=== PATIENT | female | born 1980 | race African-American/Black ===

== ENCOUNTER 2017-12-05 14:26 | Emergency (ER) | payer SELFPAY | END 2017-12-05 16:57 | disposition home or self-care (01) | LOC: ERS 14:26 | DX: Z32.01 Encounter for pregnancy test, result positive (principal); E11.9 Type 2 diabetes mellitus without complications; E78.5 Hyperlipidemia, unspecified; I10 Essential (primary) hypertension; E66.9 Obesity, unspecified; F17.210 Nicotine dependence, cigarettes, uncomplicated | CPT/HCPCS: 36415; 84702; 99282 ==

== ENCOUNTER 2018-06-16 18:02 | Day surgery (SDC) | payer MEDICAID, OTHER ==
[2018-06-16 19:35] VITALS: BMI 37.0
[2018-06-16 19:36] VITALS: BP 135/69; TEMP 98.1
--- NOTE | 2018-06-16 19:39 | PDOC.FPROB ---
FMR OB H&P: HPI - History of Present Illness Chief Complaint: 04/17 BPP/NST in clinic today History of Present Illness: Pt is a 37 yo @ 33.3 wk by LMP/9.1 wk sono presenting for repeat BPP/ NST for non reassuring NST/BPP today in clinic. NST showed only 1 accel, and BPP lost point for no breathing. Pt denies LOF, contractions, or vaginal bleeding. Baby is moving well. Pt has been complicated by A2GDM, cHTN, sickle cell trait, AMA, uterine fibroids, obesity, anemia of , and positive UDS for cannabis. She is being followed by M. Pt reports having high fasting morning blood sugars around 190, but other checks through the day have been in the 90s. Switched from glyburide 2.5 to 5 last week in clinic. Pt states that she had headache all day yesterday that resolved with tylenol. She also has been having upper abdominal pain. Pt complains of constipation. Denies swelling of hands/ feet. Primary Care Physician: Dr. Almaraz FMR OB H&P: Current - Care : G5 Para: [id number] Gestational age: 33.3 wk Dating Criteria: 9.1 wk sono Course/Complications: Pt has been complicated by A2GDM, cHTN, sickle cell trait, AMA, uterine fibroids, obesity, anemia of , and positive UDS for cannabis. 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 17 pack year history. Denies alcohol or drug use. UDS in clinic + for cannabinoids. - Family History Family History: DM: mGM Cardiac: heart attacks on both sides of family Cancer: brother stomach cancer, pGF prostate cancer, pGM breast cancer FMR OB H&P: Medications - Current Home Medications: Medication Instructions Recorded Confirmed Type Aspirin [Aspir-Low] 81 mg PO DAILY 06/16/18 06/16/18 History Doxylamine Succinate/Vit B6 2 tablet PO HS 06/16/18 06/16/18 History [Catie RIVERA] Ferrous Sulfate [Feosol] 325 mg PO BID 06/16/18 06/16/18 History Metoclopramide HCl 5 mg PO BID 06/16/18 06/16/18 History Pnv 102/Iron/Folic/Dha/Lutein 1 each PO DAILY 06/16/18 06/16/18 History [Similac Combo Pack] Ranitidine HCl [Acid Rn Critical Care] 150 mg PO DAILY 06/16/18 06/16/18 History glyBURIDE [Glyburide] 2.5 mg PO DAILY 06/16/18 06/16/18 History Allergies/Adverse Reactions: Allergies Allergy/AdvReac Type Severity Reaction Status Date / Time No Known Allergies Allergy Verified 06/16/18 19:40 FMR OB H&P: ROS - Review of Systems General: denies: fever/chills Eyes: denies: eye pain, vision changes ENT: denies: nasal congestion, rhinorrhea, ear pain, sore throat Cardiovascular: denies: chest pain, palpitation Respiratory: denies: cough, congestion, shortness of breath Gastrointestinal: reports: abdominal pain (upper abdominal pain), constipation. denies: nausea, vomiting, diarrhea, bright red blood FMR OB H&P: Vital Signs - Maternal Vital signs: BP 135/69, P 88, T 98.8 - Heart Tones Baseline: 120 Variability: moderate Acceleration: present Deceleration: absent Phillips contractions every: none FMR OB H&P: Physical Exam - Physical Exam General: NAD, awake, alert and oriented HEENT: normocephalic and atraumatic, PERRLA, MMM, grossly normal hearing Neck: supple, no LAD Heart: RRR, normal S1/S2, no murmurs/rubs/gallops, pulses present, no edema General: CTAB, no respiratory distress, good air movement, no rales/rhonchi, no wheezing Abdomen: soft, gravid, other (TTP in upper abdomen) Musculoskeletal: pulses present Neurological: cranial nerves II through XII intact Skin: good tugor, capillary refill <2 seconds Psychiatric: intact recent and remote memory, good judgement and insight, normal mood and affect FMR OB H&P: A/P - Problem List (1) GDM, class A2 Status: Acute Code(s): O24.419 - GESTATIONAL DIABETES MELLITUS IN , UNSP CONTROL (2) Chronic benign essential hypertension in third trimester Status: Acute Code(s): O10.013 - PRE-EXISTING ESSENTIAL HTN COMP , THIRD TRIMESTER (3) Sickle cell trait syndrome Status: Chronic Code(s): D57.3 - SICKLE-CELL TRAIT (4) Advanced maternal age (AMA) in Status: Acute Code(s): [id number] - (5) Uterine fibroid Status: Chronic Code(s): D25.9 - LEIOMYOMA OF UTERUS, UNSPECIFIED (6) Obesity (BMI 30-39.9) Status: Chronic Code(s): E66.9 - OBESITY, UNSPECIFIED (7) Anemia affecting in third trimester Status: Acute Code(s): O99.013 - ANEMIA COMPLICATING , THIRD TRIMESTER (8) Cannabis abuse Status: Chronic Code(s): F12.10 - CANNABIS ABUSE, UNCOMPLICATED Discussion: Date/Time: 06/16/18 1934 Pt is a 37 yo high risk @ 33.3 wk by LMP/9.1 wk sono with reassuring NST /BPP. #sIUP -FHTs reactive and reassuring, baseline 120 with mod variability, accels present and no decels -BPP 8/8 at this time -PHOEBE 7.1 -Breech presentation -Follow up with routine care with PCP Dr. Deidra Almaraz #A2GDM -continue glyburide 5 mg and checking blood sugars at home -Consistent carb diet #cHTN -Stable at this time, BP have been in the 130s/70s. -Recent clinic labs showed normal liver enzymes, and BP stable so no concern for Pre-E at this time #sickle cell trait -Continue following with MFM -Continue Monthly UAs #AMA #uterine fibroids #obesity #anemia of -Continue Fe daily #Positive UDS for cannabis during [facility] [place] PGY-1 This H&P was discussed with Dr. Booker who agree with the above documentation and plan. Attending Addendum - Attending Addendum Date/Time: 06/16/18 4736 I personally evaluated the patient and discussed the management with Dr. Swain I agree with the History, Examination, Assessment and Plan documented above with any addition or exceptions noted below. BPP 08/17 on repeat. March d/c to home.
--- NOTE | 2018-06-16 20:46 | ULT ---
LIMITED OBSTETRICAL ULTRASOUND FOR BIOPHYSICAL PROFILE: 06/16/18 INDICATION: Unreassuring BPP examination. FINDINGS: The fetus received 2 out of 2 for movement, 2 out of 2 for tone, 2 out of 2 for br eathing movement and 2 out of 2 for amniotic fluid pocket measurement. PHOEBE was 7.1 cm, which at the provided gestational age of 33 weeks is slightly below 2.5th percentile. Placenta is posterior in location. There is breech presentation. Cardiac activity is noted at 136 beats per minute. IMPRESSION: 1. Biophysical profile 8 out of 8. 2. PHOEBE of 7.1 is below the 2.5th percentile for gestational age. POS: [facility]
== END 2018-06-16 20:58 | disposition home or self-care (01) ==
LOC: L&D/OP 18:02
PROVIDERS: ATTEND Family Medicine
DX: O24.415 Gestational diabetes mellitus in pregnancy, controlled by oral hypoglycemic drugs (principal); O10.013 Pre-existing essential hypertension complicating pregnancy, third trimester; O99.013 Anemia complicating pregnancy, third trimester; D57.3 Sickle-cell trait; O99.323 Drug use complicating pregnancy, third trimester; F12.10 Cannabis abuse, uncomplicated; O34.13 Maternal care for benign tumor of corpus uteri, third trimester; D25.9 Leiomyoma of uterus, unspecified; O32.1XX0 Maternal care for breech presentation, not applicable or unspecified; O09.523 Supervision of elderly multigravida, third trimester; O99.213 Obesity complicating pregnancy, third trimester; E66.9 Obesity, unspecified; Z68.37 Body mass index [BMI] 37.0-37.9, adult; Z3A.33 33 weeks gestation of pregnancy; Z87.891 Personal history of nicotine dependence; Z79.84 Long term (current) use of oral hypoglycemic drugs; Z79.82 Long term (current) use of aspirin; Z79.899 Other long term (current) drug therapy
CPT/HCPCS: 59025; 76819; 99282

== ENCOUNTER 2018-07-01 13:32 | Day surgery (SDC) | payer OTHER ==
[2018-07-01 13:59] VITALS: BMI 37.0
--- NOTE | 2018-07-01 14:37 | ULT ---
ULTRASOUND BIOPHYSICAL PROFILE: Date: 07/01/18 HISTORY: distress. FINDINGS: A single, live intrauterine gestation is seen, with heart rate of 143 beats/minute. PHOEBE measure s 8.0 cm. Placenta is posteriorly located. position Is vertex. Biophysical Profile: Tone: 2 Breathin Movements: 2 Amniotic Fluid: 2 IMPRESSION: Ultrasound biophysical profile score is 8 out of 8. POS: [facility]
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
== END 2018-07-01 15:15 | disposition home health service (06) ==
LOC: L&D/OP 13:32
PROVIDERS: ATTEND Family Medicine
DX: O09.523 Supervision of elderly multigravida, third trimester (principal); O24.419 Gestational diabetes mellitus in pregnancy, unspecified control; O10.013 Pre-existing essential hypertension complicating pregnancy, third trimester; O99.213 Obesity complicating pregnancy, third trimester; O99.013 Anemia complicating pregnancy, third trimester; Z3A.35 35 weeks gestation of pregnancy; Z87.891 Personal history of nicotine dependence; Z79.82 Long term (current) use of aspirin; Z79.899 Other long term (current) drug therapy
CPT/HCPCS: 36416; 59025; 76819; 99282

== ENCOUNTER 2018-07-07 14:11 | Day surgery (SDC) | payer OTHER ==
--- NOTE | 2018-07-07 15:44 | ULT ---
ULTRASOUND BIOPHYSICAL PROFILE: 07/07/18 HISTORY: Failed nonstress test in office. COMPARISON: Biophysical profile 07/01/18. FINDINGS: Real time cordova scale and color evaluation of the gravid uterus was performed. Biophysical profile sco re is 8/8. heart rate documented at 127 beats per minute. Amniotic fluid index is 6.8. IMPRESSION: 1. Biophysical profile score of 8/8. 2. Amniotic fluid index of 6.8. POS: [facility]
--- NOTE | 2018-07-07 15:53 | PDOC.FPROB ---
Addendum entered and electronically signed by Eleni Galdamez MD 07/07/18 16:22 : Please addend the plan: BP on exam today was 138/88; cervical exam @ 1615 was cl /th/hi Original Note: FMR OB H&P: HPI - History of Present Illness Chief Complaint: non-reactive NST History of Present Illness: This is a 38 yo @ 36.2wks by LMP and 9.1wk US presenting for nonreactive NST in clinic. Patient feels baby movement. She notes a vaginal discharge but states she was recently checked in clinic, amnisure neg. She denies LOF or bleeding from the vagina. She denies CTX, headache, vision changes , SOB, chest pain or fever. is complicated by GDM A2, cHTN, sickle cell trait, AMA, uterine fibroids, obesity, anemia of and history of UDS+ cannibinoids. Regarding GDM, patient states she checks her blood sugar 3 x a day and it has been controlled with glyburide. She recently saw a specialist who adjusted her medications to 5mg in the AM and 2.5mg in PM. She notes compliance. Primary Care Physician: Dr. 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: uterine fibroids - Social History Social History: 17 pack year smoking hx, quit when she found out she was FMR OB H&P: Medications - Current Home Medications: Medication Instructions Recorded Confirmed Type Aspirin [Aspir-Low] 81 mg PO DAILY 06/16/18 07/07/18 History Ferrous Sulfate [Feosol] 325 mg PO BID 06/16/18 07/07/18 History glyBURIDE [Glyburide] 2.5 mg PO DAILY 06/16/18 07/07/18 History Allergies/Adverse Reactions: Allergies Allergy/AdvReac Type Severity Reaction Status Date / Time No Known Allergies Allergy Verified 07/07/18 17:18 FMR OB H&P: ROS - Review of Systems General: denies: fever/chills, weight/appetite/sleep changes, night sweats Eyes: denies: eye pain, vision changes, double vision, scotomas, floaters ENT: denies: nasal congestion, rhinorrhea Cardiovascular: denies: chest pain, palpitation, edema Respiratory: denies: cough, congestion, shortness of breath Gastrointestinal: denies: abdominal pain, indigestion, bloating, cramping, nausea, vomiting, diarrhea, constipation Genitourinary (Female): reports: vaginal discharge. denies: incontinence, dysuria, hematuria, polyuria, vaginal pain, vaginal bleeding, contractions, vaginal pressure Musculoskeletal: denies: pain, stiffness, tenderness, redness Neurologic: denies: numbness, syncope, seizures, headache Integumentary: denies: itching, rash FMR OB H&P: Physical Exam - Physical Exam General: NAD, awake, alert and oriented HEENT: normocephalic and atraumatic, PERRLA, EOMI, MMM, grossly normal vision, grossly normal hearing Neck: supple, FROM Chest: non-tender to palpation Heart: RRR, normal S1/S2, no murmurs/rubs/gallops General: CTAB, no respiratory distress, good air movement Abdomen: gravid, non-tender, bowel sound present Musculoskeletal: FROM in all four extremities Skin: no rash Psychiatric: normal mood and affect FMR OB H&P: Results - Labs Lab results: Laboratory Results - last 24 hr 07/07/18 15:38 POC Glucose 44 L* FMR OB H&P: A/P - Problem List (1) Advanced maternal age (AMA) in Status: Acute Code(s): [id number] - (2) Anemia affecting in third trimester Status: Acute Code(s): O99.013 - ANEMIA COMPLICATING , THIRD TRIMESTER (3) Chronic benign essential hypertension in third trimester Status: Acute Code(s): O10.013 - PRE-EXISTING ESSENTIAL HTN COMP , THIRD TRIMESTER (4) GDM, class A2 Status: Acute Code(s): O24.419 - GESTATIONAL DIABETES MELLITUS IN , UNSP CONTROL (5) Intrauterine Status: Acute Code(s): Z34.90 - ENCNTR FOR SUPRVSN OF NORMAL , UNSP, UNSP TRIMESTER (6) Cannabis abuse Status: Chronic Code(s): F12.10 - CANNABIS ABUSE, UNCOMPLICATED (7) Obesity (BMI 30-39.9) Status: Chronic Code(s): E66.9 - OBESITY, UNSPECIFIED (8) Sickle cell trait syndrome Status: Chronic Code(s): D57.3 - SICKLE-CELL TRAIT (9) Uterine fibroid Status: Chronic Code(s): D25.9 - LEIOMYOMA OF UTERUS, UNSPECIFIED Disposition: This is a 38 yo who is presenting due to non-reactive NST in clinic IUP, nonreactive NST - will observe in L&D - BPP US was 8 in the hospital today, PHOEBE 6.8 - Pt is feeling baby move - pt's glucose was 44 - after diet we will recheck - We will do a cervical check on the patient today GDM, Class A2 - We will continue meds - Pt's admit glucose was 44; she is going to drink orange juice and have a diet and then we will recheck glucose Chronic HTN - current BP wnl - will continue to monitor hx of UDS + - aware, will recheck UDS today Fibroid - aware, we will monitor FHT Sickle Cell Trait - aware, we are monitoring pts vitals Obesity AMA DISPO: likely will send home after reassuring BPP. Stable for discharge and has induction scheduled for Wednesday. Case discussed with Dr. Ricardo who is in agreement Discussion: Date/Time: 07/07/18 3292 This H&P was discussed with [] and [] who agree with the above documentation and plan. Attending Addendum - Attending Addendum Date/Time: 07/08/18 4108 I personally evaluated the patient and discussed the management with Dr. Galdamez I agree with the History, Examination, Assessment and Plan documented above with any addition or exceptions noted below.
--- NOTE | 2018-07-07 17:10 | PDOC.EVN ---
Event Note - Event Note Event Note: Plan is to discharge patient as she had a reactive BPP / today, is cl/th/hi on exam and she is not have CTX. Her blood sugar was low but increased after orange juice and a sandwich. Her BP was wnl. She is scheduled for induction on Wednesday, Jul 09 due to her GDM. Discussed with patient to return if she has any LOF, vaginal bleeding, CTX, or decreased movement. She understands and agrees with the plan. Upon discharge, we have a UDS pending. Case discussed with Dr. Ricardo who is in agreement.
[2018-07-07 17:18] VITALS: BP 139/88; TEMP 98.8; BMI 37.4
[2018-07-07 17:45] LABS: Amphetamine Not Detected (NotDetected); Barbiturates Screen Not Detected (NotDetected); Benzodiazepine Screen Not Detected (NotDetected); Cocaine Metabolite Screen Not Detected (NotDetected); Medtox Control Line Valid? VALID (VALID); Medtox Reader # READER 4; Methadone Not Detected (NotDetected); Methamphetamine Not Detected (NotDetected); Opiate Screen Not Detected (NotDetected); Oxycodone Screen Not Detected (NotDetected); Phencyclidine (PCP) Not Detected (NotDetected); THC/Cannabinoid Screen Not Detected (NotDetected); Tricyclic Screen Not Detected (NotDetected)
== END 2018-07-07 17:30 | disposition home or self-care (01) ==
LOC: L&D/OP 14:11
DX: O09.523 Supervision of elderly multigravida, third trimester (principal); O99.013 Anemia complicating pregnancy, third trimester; O24.419 Gestational diabetes mellitus in pregnancy, unspecified control; O10.013 Pre-existing essential hypertension complicating pregnancy, third trimester; O99.213 Obesity complicating pregnancy, third trimester; O99.113 Other diseases of the blood and blood-forming organs and certain disorders involving the immune mechanism complicating pregnancy, third trimester; O34.13 Maternal care for benign tumor of corpus uteri, third trimester; D57.3 Sickle-cell trait; D25.9 Leiomyoma of uterus, unspecified; F12.10 Cannabis abuse, uncomplicated; Z87.891 Personal history of nicotine dependence; Z79.82 Long term (current) use of aspirin; Z79.899 Other long term (current) drug therapy; Z3A.36 36 weeks gestation of pregnancy
CPT/HCPCS: 36416; 76819; 80306; 99284

== ENCOUNTER 2023-01-29 10:13 | Emergency (ER) | payer OTHER | END 2023-01-29 14:36 | disposition home or self-care (01) | LOC: ERS 10:13 | DX: S40.011A Contusion of right shoulder, initial encounter (principal); M62.838 Other muscle spasm; E11.9 Type 2 diabetes mellitus without complications; E78.00 Pure hypercholesterolemia, unspecified; I10 Essential (primary) hypertension; E66.9 Obesity, unspecified; F17.210 Nicotine dependence, cigarettes, uncomplicated; V03.99XA Pedestrian with other conveyance injured in collision with car, pick-up truck or van, unspecified whether traffic or nontraffic accident, initial encounter; Z79.84 Long term (current) use of oral hypoglycemic drugs; Z79.899 Other long term (current) drug therapy; Z79.82 Long term (current) use of aspirin | CPT/HCPCS: 99283 ==

== ENCOUNTER 2023-07-06 10:12 | Outpatient (CLI) | payer OTHER | END 2023-07-06 10:13 | disposition home or self-care (01) | LOC: RAD 10:12 | PROVIDERS: ATTEND Student in an Organized Health Care Education/Training Program | DX: J06.9 Acute upper respiratory infection, unspecified (principal) | CPT/HCPCS: 71046 ==

== ENCOUNTER 2024-08-07 07:56 | Inpatient (IN) | payer OTHER ==
[2024-08-21] MEDS ORDERED: Scopolamine 1 mg/72 hour Patch ONE (11:14)
[2024-08-21] MEDS ORDERED: cefOXitin 2 GM VIAL ONE (11:14)
[2024-08-21] MEDS ORDERED: Enoxaparin 40 MG (0.4 mL) SYRINGE ONE (11:15)
[2024-08-21] MEDS ORDERED: Sodium Chloride 0.9% 100 ML ONE (11:15)
[2024-08-21] MEDS ORDERED: EPINEPHrine 1 MG/ML VIAL ONE (11:48)
[2024-08-21] MEDS ORDERED: Bupivacaine 0.25% HCL 30 ML VIAL ONE (11:49)
[2024-08-21] MEDS ORDERED: Lidocaine 1% PF 5 ML VIAL ONE (11:59)
[2024-08-21] MEDS ORDERED: PROPOFOL 20 ML ONE (11:59)
[2024-08-21] MEDS ORDERED: fentaNYL PF 100 MCG/2 ML SYRINGE ONE (11:59)
[2024-08-21] MEDS ORDERED: Rocuronium Bromide 10 MG/ML (10ML VIAL) ONE (11:59)
[2024-08-21] MEDS ORDERED: Ketorolac Tromethamine 30 MG (1 mL) VIAL ONE (12:27)
[2024-08-21] MEDS ORDERED: SUGAMMADEX SODIUM 200 MG/2 ML VIAL ONE (12:27)
[2024-08-21] MEDS ORDERED: Ondansetron PF 4 MG/2 ML Vial ONE (12:27)
[2024-08-21] MEDS ORDERED: Metoclopramide HCl 10 MG (2 mL) VIAL ONE (12:27)
[2024-08-21] MEDS ORDERED: Dexamethasone 4 mg/ml Vial ONE (12:27)
[2024-08-21] MEDS ORDERED: Promethazine HCl 25 MG/ML VIAL IM PRN ×2 (12:45→14:05)
[2024-08-21] MEDS ORDERED: Ondansetron HCl/PF 4 MG/2 ML Vial IVP PRN (12:45)
[2024-08-21] MEDS ORDERED: fentaNYL 50 mcg/mL 1 mL Vial ONE ×4 (13:41→16:03)
[2024-08-21] MEDS ORDERED: hydrALAZINE 20 MG/ML VIAL SLOW IVP PRN (14:05)
[2024-08-21] MEDS ORDERED: Dextrose 5% in Water 1,000 ML IV PRN (14:05)
[2024-08-21] MEDS ORDERED: Dextrose 50% Abboject 50 ML SYRINGE SLOW IVP PRN (14:05)
[2024-08-21] MEDS ORDERED: Glucagon 1 MG/ML KIT IM PRN (14:05)
[2024-08-21] MEDS ORDERED: diphenhydrAMINE 50 MG/ML VIAL IVP PRN (14:05)
[2024-08-21] MEDS ORDERED: Ipratropium/Albuterol 3 ML NEB NEB PRN (14:05)
[2024-08-21] MEDS ORDERED: HYDROmorphone 0.5 MG/0.5 ML SYRINGE ONE (14:37)
[2024-08-21] MEDS: D5 1/2 NS w/20 mEq KCL 1,000 ML IV SCH (17:06)
[2024-08-21] MEDS: Ketorolac Tromethamine 30 MG (1 mL) VIAL IVP SCH (17:51)
[2024-08-21] MEDS: Ondansetron PF 4 MG/2 ML Vial IVP PRN (17:52)
[2024-08-21 19:30] VITALS: BMI 39.9
[2024-08-21] MEDS: Acetaminophen 650 MG/20.3 ML UDCUP PO SCH (21:20)
[2024-08-21] MEDS: Insulin Regular, Human 100 UNIT/ML 10 ML VIAL SC PRN (23:32)
[2024-08-22 07:41] LABS: #Basophils Less than 0.03 10x3/uL (0.0-0.2); #Eosinophils Less than 0.03 10x3/uL (0.0-0.7); %Basophils 0.1 % (0.0-1.0); %Lymphocytes 29.4 % (21.0-51.0); %Monocytes 13.1 % (0.0-10.0); %Neutrophils 57.1 % (42.0-75.0); Hematocrit 25.9 % (36.0-47.0); Hemoglobin 8.9 g/dL (12.0-16.0); Mean Corpuscular HGB CONC 34.4 g/dL (32.0-36.0); Mean Corpuscular Hemoglobin 25.3 pg (27.0-31.0); Mean Corpuscular Volume 73.6 fL (78.0-98.0); Mean Platelet Volume 9.1 fL (7.4-10.4); Platelet Count 291 10x3/uL (130-400); RBC Distribution Width 14.6 % (11.5-14.5); Red Blood Cell (RBC) Count 3.52 mill/uL (4.20-5.40)
[2024-08-22] MEDS: Morphine 2 MG/ML VIAL SLOW IVP SCH (07:42)
[2024-08-22] MEDS: Enoxaparin 40 MG (0.4 mL) SYRINGE SC SCH (07:42)
[2024-08-22] MEDS: oxyCODONE 5 MG TAB PO PRN (07:43)
[2024-08-22] MEDS: Pantoprazole 40 MG VIAL IVP SCH (07:43)
[2024-08-22] MEDS: FLU (Fluarix Triv) TS24-25(6MOS UP)/PF 45 MCG/0.5 ML Syringe IM ONE (07:49)
[2024-08-22 07:53] LABS: ALT (SGPT) 60 U/L (8-55); AST (SGOT) 30 U/L (5-34); Albumin 3.4 g/dL (3.5-5.0); Alkaline Phosphatase 61 U/L (40-110); Anion Gap 11 mmol/L (10-20); BUN (Urea Nitrogen) 11 mg/dL (7.0-18.7); Bilirubin, Total 0.2 mg/dL (0.2-1.2); Calc. Creatinine Clearance 137 mL/min (70-130); Calcium 8.5 mg/dL (7.8-10.44); Carbon Dioxide 23 mmol/L (22-29); Chloride 104 mmol/L (98-107); Estimated GFR 84; Globulin 3.2 g/dL (2.4-3.5); Glucose 229 mg/dL (70-105); Potassium 4.1 mmol/L (3.5-5.1); Protein, Total 6.6 g/dL (6.0-8.3); Sodium 134 mmol/L (136-145)
[2024-08-22 08:03] LABS: Microcytosis SLIGHT = 6-15 cells HPF (0-5); Platelet Adequacy Comment Platelets Normal; Target Cells SLIGHT = 2-5 cells HPF (0-1)
[2024-08-22 16:26] VITALS: BP 128/89; TEMP 98.6
== END 2024-08-22 17:40 | disposition home or self-care (01) | DRG 621 ==
LOC: SURG A 08-21 09:58 → SURG B 08-21 17:12
PROVIDERS: ADMIT Surgery; ATTEND Surgery
PROC: 0DB60Z3 Excision of Stomach, Open Approach, Vertical (ICD-10-PCS; principal; 2024-08-21)
PROC: 8E0W0CZ Robotic Assisted Procedure of Trunk Region, Open Approach (ICD-10-PCS; 2024-08-21)
DX: E66.01 Morbid (severe) obesity due to excess calories (principal); E11.9 Type 2 diabetes mellitus without complications; I10 Essential (primary) hypertension; G47.33 Obstructive sleep apnea (adult) (pediatric); K21.9 Gastro-esophageal reflux disease without esophagitis; F17.210 Nicotine dependence, cigarettes, uncomplicated; Z79.899 Other long term (current) drug therapy; Z79.84 Long term (current) use of oral hypoglycemic drugs; Z79.85 Long-term (current) use of injectable non-insulin antidiabetic drugs; E78.00 Pure hypercholesterolemia, unspecified; Z68.39 Body mass index [BMI] 39.0-39.9, adult
CPT/HCPCS: 36415; 36416; 80053; 85025; 88307; 88342; J0171; J0665; J0694; J1100; J1170; J1650; J1815; J1885; J2272; J2405; J2470; J2704; J2765; J3010; J3480

== ENCOUNTER 2024-08-07 15:48 | Outpatient (CLI) | payer OTHER ==
[2024-08-07 17:03] LABS: Hematocrit 36.4 % (36.0-47.0); Mean Corpuscular Hemoglobin 24.9 pg (27.0-31.0); Mean Corpuscular Volume 75.5 fL (78.0-98.0); Mean Platelet Volume 9.1 fL (7.4-10.4); Platelet Count 324 10x3/uL (130-400); RBC Distribution Width 14.7 % (11.5-14.5); Red Blood Cell (RBC) Count 4.82 mill/uL (4.20-5.40)
[2024-08-07 17:11] LABS: Anion Gap 13 mmol/L (10-20); BUN (Urea Nitrogen) 10 mg/dL (7.0-18.7); Calc. Creatinine Clearance 0 mL/min (70-130); Calcium 9.5 mg/dL (7.8-10.44); Carbon Dioxide 25 mmol/L (22-29); Chloride 104 mmol/L (98-107); Estimated GFR 108; Glucose 95 mg/dL (70-105); Potassium 3.5 mmol/L (3.5-5.1); Sodium 138 mmol/L (136-145)
[2024-08-07 18:20] LABS: Eosinophils 2 % (0-10); Lymphocytes 49 % (21-51); Monocytes 7 % (0-10); Neutrophil 41 % (42-75); Platelet Adequacy Comment Platelets Normal; Polychromasia SLIGHT = 2-3 cells HPF (0-2); Reactive Lymphocytes 1 % (0-10)
== END 2024-08-07 15:49 | disposition home or self-care (01) ==
LOC: LABBT 15:48
PROVIDERS: ATTEND Surgery
DX: Z01.818 Encounter for other preprocedural examination (principal); E11.9 Type 2 diabetes mellitus without complications
CPT/HCPCS: 80048; 85025; 93005; 93010